=== PATIENT | female | born 1955 | race Caucasian/White ===

== ENCOUNTER → 2017-06-28 | Outpatient (CLI) | payer OTHER ==
--- NOTE | 2017-06-30 11:21 | MAM ---
EXAM DESCRIPTION: 3D Screening BILATERAL CLINICAL HISTORY: 61 yearsFemaleSCREENING . No complaints. Mother with breast cancer. Partial hysterectomy. No HRT COMPARISON: Baseline study at this facility. No prior reports available. Reports from each prior examination also reviewed Report from prior examination reviewed. TECHNIQUE: Bilateral digital screening. CC and MLO projection full-field, 2-D images. Bilateral Diane implant displacement images, CC and MLO full-field projections, 3-D tomosynthesis. CAD utilized on 2-D images. FINDINGS: The breast parenchymal density pattern is: Heterogeneously dense breast tissue, which may obscure small masses. No skin thickening or nipple retraction bilaterally. Bilateral intramammary lymph nodes. Bilateral subpectoral saline implants. Capsules appear intact where seen. Left axillary lymph node. Solitary microcalcifications left breast. No focal, stellate mass or density no focal asymmetry, and no suspicious microcalcifications bilaterally IMPRESSION: BI-RADS CATEGORY: 2 - BENIGN FINDINGS. FOLLOW UP: Routine digital bilateral screening, one year interval from June 2017. Written communication explaining the IMPRESSION and follow-up, will be mailed to the patient and referring health care provider. According to the [employer], yearly mammograms are recommended starting at age 40 and continuing as long as a woman is in good health. Any breast change noted on a breast self-exam should be reported promptly to the patient's healthcare provider. Breast MRI is recommended for women with an approximately 20-25% or greater lifetime risk of breast cancer, including women with a strong family history of breast or ovarian cancer and women who have been treated for Hodgkin's disease. A negative mammographic report should not delay tissue diagnosis in patients with significant clinical history or physical findings. Extremely dense breast tissue limits the sensitivity of digital mammography. Electronically signed by: Matthew Lima MD 06/30/2017 11:19 AM [facility]
== END | disposition home or self-care (01) ==
LOC: MAMMO 12:20 → EEVIPCON 12:20
PROVIDERS: ATTEND Family Medicine
DX: Z12.31 Encounter for screening mammogram for malignant neoplasm of breast (principal)
CPT/HCPCS: 77063; G0202